=== PATIENT | male | born 1990 | race Caucasian/White ===

== ENCOUNTER 2018-12-28 12:55 | Emergency (ER) | payer OTHER ==
[~2018-12-28] VITALS: Ht 167.6 cm; Wt 87.5 kg
--- NOTE | 2018-12-28 13:10 | NUR ---
PT BIBWIFE, C/O ABD PAIN AND RECTAL BLEEDING x 12 DAYS, ON PO ATB +DIARRHEA, -N/V. PT AAOX4, VSS, BREATHING EVEN AND UNLABORED W/ NO ACUTE DISTRESS NOTED. PT CONNECTED TO THE MONITOR AND POX.
--- NOTE | 2018-12-28 13:15 | NUR ---
PÉREZ DISHIGRIKIAN AT BEDSIDE FOR EVAL
[2018-12-28 13:31] LABS: BASOPHILS # (AUTO) 0.1 /CMM (0.0-0.2); EOSINOPHILS % (AUTO) 2.3 % (0.0-6.0); HEMATOCRIT 42 % (39-51); HEMOGLOBIN 13.7 g/dL (13.5-17.5); LYMPHOCYTES # (AUTO) 1.2 /CMM (0.8-4.8); LYMPHOCYTES % (AUTO) 10.8 % (20.0-44.0); MEAN CORPUSCULAR HGB CONC 33 g/dl (31.0-36.0); MEAN CORPUSCULAR VOLUME 83 fL (80-96); MONOCYTES # (AUTO) 0.7 /CMM (0.1-1.30); MONOCYTES % (AUTO) 6.3 % (2.0-12.0); NEUTROPHILS # (AUTO) 9.1 /CMM (1.8-8.9); NEUTROPHILS % (AUTO) 79.6 % (43.0-81.0); PLATELET COUNT (AUTO) 298 /CMM (150-450); RED BLOOD CELL COUNT(AUTO) 5.05 MIL/uL (4.5-6.0); WHITE BLOOD COUNT (AUTO) 11.4 K/uL (4.3-11.0)
[2018-12-28 13:37] LABS: CALCIUM, SERUM 8.9 mg/dL (8.5-10.1); CREATININE 0.9 mg/dL (0.6-1.3); POTASSIUM 3.8 mmol/L (3.5-5.1)
[2018-12-28 13:42] LABS: BILIRUBIN,DIRECT 0.1 mg/dL (0.0-0.2); BILIRUBIN,TOTAL 0.3 mg/dL (0.2-1.0); TOTAL PROTEIN, SERUM 7.3 g/dL (6.4-8.2)
--- NOTE | 2018-12-28 13:45 | NUR ---
STOOL SAMPLE SENT TO LABORATORY.
[2018-12-28 14:05] LABS: OCCULT BLOOD STOOL POSITIVE (NEGATIVE)
--- NOTE | 2018-12-28 14:53 | NUR ---
Patient discharged to home in stable condition. Written and verbal after care instructions given. Patient verbalizes understanding of instruction.
[2018-12-28 14:54] VITALS: BP 127/79
== END 2018-12-28 14:55 | disposition home or self-care (01) ==
LOC: ER 12:56
DX: A04.9 Bacterial intestinal infection, unspecified (principal); R19.7 Diarrhea, unspecified
CPT/HCPCS: 36415; 80048-TC; 80076-TC; 82272-TC; 83690-TC; 85025-TC; 87045-TC; 89055

== ENCOUNTER 2019-02-12 15:29 | Emergency (ER) | payer OTHER ==
[~2019-02-12] VITALS: Ht 167.6 cm; Wt 78.9 kg
[2019-02-12 16:06] VITALS: BP 138/89
--- NOTE | 2019-02-12 16:06 | NUR ---
BIB SELF C/O DIARRHEA FOR 2 MONTHS, TO ER BED 10, HOOKED TO MONITOR, PROVIDED W WARM BLANKET, AWAITING MD ALEXANDER.
--- NOTE | 2019-02-12 16:29 | NUR ---
patient left without being seen by md.
--- NOTE | 2019-02-12 16:30 | NUR ---
MADE MD AWARE THAT PATIENT LEFT.
== END 2019-02-12 16:32 | disposition left against medical advice (07) ==
LOC: ER 15:30
DX: R19.7 Diarrhea, unspecified (principal); Z53.21 Procedure and treatment not carried out due to patient leaving prior to being seen by health care provider